=== PATIENT | female | born 1995 | race Two or more races ===

== ENCOUNTER 2017-07-11 06:30 | Inpatient (IN) | payer OTHER ==
[~2017-07-11] VITALS: Ht 157.5 cm; Wt 62.6 kg
[2017-07-11] MEDS ORDERED: PRENATAL 19 TA1 EACH PO (08:51)
== END 2017-07-13 12:26 | DRG 774 ==
LOC: LDR 06:30 → OB/GYN 06:30
PROC: 10E0XZZ Delivery of Products of Conception, External Approach (ICD-10-PCS; principal; 2017-07-11)
PROC: 10907ZC Drainage of Amniotic Fluid, Therapeutic from Products of Conception, Via Natural or Artificial Opening (ICD-10-PCS; 2017-07-11)
PROC: 3E033VJ Introduction of Other Hormone into Peripheral Vein, Percutaneous Approach (ICD-10-PCS; 2017-07-11)
PROC: 4A1HXCZ Monitoring of Products of Conception, Cardiac Rate, External Approach (ICD-10-PCS; 2017-07-11)
DX: O75.3 Other infection during labor (principal); Z3A.39 39 weeks gestation of pregnancy; Z37.0 Single live birth